=== PATIENT | female | born 1995 | race African-American/Black ===

== ENCOUNTER 2021-08-03 17:51 | Inpatient (IN) ==
[2021-08-03] MEDS ORDERED: LACTATED RINGERS 500 ML IV PRN (18:22)
[2021-08-03] MEDS ORDERED: LIDOCAINE 1% 50 ML VIAL MISC INJ ONE (18:22)
[2021-08-03] MEDS ORDERED: miSOPROStoL 200 MCG TABLET PO PRN (18:22)
[2021-08-03] MEDS ORDERED: ONDANSETRON 4 MG/2 ML VIAL IV PRN ×2 (18:22→19:29)
[2021-08-03] MEDS ORDERED: LACTATED RINGERS 250 ML IV ONE (18:22)
[2021-08-03] MEDS ORDERED: AMPICILLIN INJ 2,000 MG in SODIUM CHLORIDE 0.9% 100 ML IV ONE (18:27)
[2021-08-03] MEDS ORDERED: OXYTOCIN/LR 20 UNIT/1,000 ML BAG IV SCH (18:30)
[2021-08-03] MEDS ORDERED: LACTATED RINGERS 1,000 ML IV SCH (18:30)
[2021-08-03 18:46] LABS: Basophils % 0.2 % (0.0-0.8); Eosinophils % 0.5 % (0.00-10.9); Hematocrit 36.3 VOL% (35.7-47.0); Immature Granulocytes % 0.3 %; Immature Granulocytes Absolute 0.02 #; Lymphocytes # 1.8 10*3/uL (1.4-4.0); Lymphocytes % 29.8 % (21.3-54.2); Mean Corpuscular HGB Conc 33.1 GM/DL (32-36); Mean Corpuscular Volume 89.9 FL (87-102); Mean Platelet Volume 10.4 FL (9.6-12.0); Monocytes % 9.3 % (1.7-12.7); Neutrophils % 59.9 % (38.7-73.9); Platelet Count 157 T/CUMM (130-400); Red Blood Count 4.04 MC/CUMM (3.8-5.5); Red Cell Distribution Width 13.7 % (9.3-17.3); White Blood Count 6.1 T/CUMM (4-12)
[2021-08-03 19:17] LABS: Alanine Aminotransferase < 9 U/L (13-56); Albumin 2.5 G/DL (3.4-5.0); Alkaline Phosphatase 209 U/L (45-117); Aspartate Amino Transferase 7 U/L (0-37); Bilirubin,Total < 0.39 MG/DL (0.20-1.00); Blood Urea Nitrogen 5 MG/DL (7-18); Carbon Dioxide 24 MMOL/L (21-32); Estimated Glom Filtration Rate 113 ML/MIN; Glucose 70 MG/DL (74-106); Osmolality,Calculated 271.5 MOS/KG (273-304); Potassium 3.3 MMOL/L (3.5-5.1); Sodium 139 MMOL/L (136-145); Total Protein 6.7 G/DL (6.4-8.2)
[2021-08-03 19:23] LABS: Cord Arterial Blood HCO3 21.7 MMOL/L
[2021-08-03 19:25] LABS: Cord Venous Blood HCO3 20.1 MMOL/L
[2021-08-03] MEDS ORDERED: ACETAMINOPHEN 325 MG TABLET PO PRN (19:29)
[2021-08-03] MEDS ORDERED: OXYTOCIN/LR 20 UNIT/1,000 ML BAG IV ONE (19:29)
[2021-08-03] MEDS ORDERED: DIPH/TET/ACEL PERT BOOSTER VACCINE 0.5 ML VIAL IM ONE (19:29)
[2021-08-03] MEDS ORDERED: oxyCODONE/ACETAMINOPHEN 5-325 MG TABLET PO PRN ×2 (19:29)
[2021-08-03] MEDS ORDERED: RHO(D) IMMUNE GLOBULIN 300 MCG SYRINGE IM ONE (19:29)
[2021-08-03] MEDS ORDERED: BISACODYL 10 MG SUPP RECTAL PRN (19:29)
[2021-08-03] MEDS ORDERED: MEASLES/MUMPS/RUBELLA VACCINE 0.5 ML VIAL SUBCUT ONE (19:29)
[2021-08-03] MEDS ORDERED: LANOLIN 50% CREAM 0.3 OZ TUBE TOP PRN (19:29)
[2021-08-03] MEDS ORDERED: HYDROCORTISONE 2.5% RECTAL CREAM 30 GM TUBE TOP PRN (19:29)
[2021-08-03] MEDS ORDERED: WITCH HAZEL PADS 100/JAR TOP PRN (19:29)
[2021-08-03] MEDS ORDERED: BENZOCAINE 20%/MENTHOL 0.5% SPRAY 56 GM CAN TOP PRN (19:29)
[2021-08-03 19:33] LABS: Hepatitis B Surface Ag Quant < 0.10 Index; Hepatitis B Surface Ag Result Non-Reactive (NonReactive)
[2021-08-03 19:46] LABS: HIV Antigen/Antibody Result Nonreactive (Nonreactive)
[2021-08-03 20:21] LABS: Bilirubin,Urine Negative (Negative); Blood, Urine Moderate mg/dL (Negative); Glucose,Urine (UA) Negative (Negative); Ketones,Urine Negative (Negative); Mucus,Urine Occasional /LPF (Occasional); Nitrite,Urine Negative (Negative); Protein,Urine Negative; RBC,Urine 52 /HPF (0-4); Squamous Epithelial Cell,Urine Occasional /HPF (0-10); Urine Appearance CLEAR (Clear); Urine Color Yellow (Yellow); Urine Specific Gravity 1.006 (1.001-1.035); Urine Urobilinogen < 2.0 EU/DL (<2.0)
[2021-08-03 21:32] LABS: Barbiturates Screen,Urine Negative (Negative); Benzodiazepines Screen,Urine Negative (Negative); Cannabinoid Screen,Urine Positive (Negative); Opiate Screen,Urine Negative (Negative); Phencyclidine Screen,Urine Negative (Negative)
[2021-08-03] MEDS ORDERED: AMPICILLIN INJ 1,000 MG in SODIUM CHLORIDE 0.9% 100 ML IV SCH (22:30)
[2021-08-04 07:41] LABS: Basophils % 0.1 % (0.0-0.8); Eosinophils % 0.4 % (0.00-10.9); Hematocrit 35.9 VOL% (35.7-47.0); Hemoglobin 11.7 GM/DL (12.0-16.0); Immature Granulocytes % 0.3 %; Immature Granulocytes Absolute 0.02 #; Lymphocytes # 1.7 10*3/uL (1.4-4.0); Lymphocytes % 22.7 % (21.3-54.2); Mean Corpuscular HGB Conc 32.6 GM/DL (32-36); Mean Corpuscular Volume 91.1 FL (87-102); Mean Platelet Volume 11.8 FL (9.6-12.0); Monocytes % 8.8 % (1.7-12.7); Neutrophils % 67.7 % (38.7-73.9); Platelet Count 143 T/CUMM (130-400); Red Blood Count 3.94 MC/CUMM (3.8-5.5); Red Cell Distribution Width 13.6 % (9.3-17.3); White Blood Count 7.3 T/CUMM (4-12)
[2021-08-04] MEDS: DOCUSATE SODIUM 100 MG CAPSULE PO SCH ×2 (08:53→22:17)
[2021-08-04] MEDS: POTASSIUM CHLORIDE 20 MEQ TABLET PO PRN ×4 (08:53→22:17)
[2021-08-04] MEDS: IBUPROFEN 800 MG TABLET PO PRN (18:42)
[2021-08-05] MEDS: IBUPROFEN 800 MG TABLET PO PRN (01:57)
[2021-08-05 06:57] LABS: Rubella Antibody IgG Result Reactive (NonReactive)
[2021-08-05] MEDS: DOCUSATE SODIUM 100 MG CAPSULE PO SCH (09:56)
[2021-08-05 14:01] VITALS: BP 100/56
== END 2021-08-05 14:11 | disposition home or self-care (01) | DRG 560 ==
LOC: N.LDOUT 17:51 → N.LD 17:57 → N.OB 08-04 07:55
PROVIDERS: ADMIT Student in an Organized Health Care Education/Training Program; ATTEND Student in an Organized Health Care Education/Training Program